=== PATIENT | female | born 1980 ===

== ENCOUNTER 2020-07-17 06:14 | Day surgery (SDC) | payer OTHER ==
[~2020-07-17 06:14] MED LIST: LACTATED RINGERS 1,000 ML IV SCH; METHYLERGONOVINE MALEATE 0.2 MG/ML VIAL IM ONE; MIDAZOLAM 2 MG/2 ML INJ IV NR; SCOPOLAMINE TRANSDERMAL PATCH 72 HR TD NR; SODIUM CHLORIDE 0.9% IRR 1,500 ML BOTTLE IR ONE
--- NOTE | 2020-07-17 06:35 | Short Stay Summary ---
Short Stay Documentation Date of service: 07/17/20 Narrative H&P: 39y/o @ 8 weeks ega with findings of an embryonic demise. Patient denies any precipitating event for her loss. This was an IVF . She denies any passage of tissue - History Principal diagnosis: Missed Past Medical History: No medical history Past Surgical History: No surgical history Social history: - Allergies and Medications Current Medications: Active Medications Lactated Ringer's (Lactated Ringers) 1,000 mls @ 100 mls/hr IV DIRECT MERCED Stop: 07/17/20 23:59 Midazolam HCl (Midazolam 2 Mg/2 Ml Inj) 2 mg IV PREOP NR Scopolamine (Scopolamine Transdermal Patch 72 Hr) 1 each TD PREOP NR - Physical exam General appearance: no acute distress Integumentary: no rash HEENT: Atraumatic Lungs: Clear to auscultation Breasts: deferred Heart: Regular rate Gastrointestinal: normal Female Genitourinary: deferred Rectal Exam: deferred - Brief post op/procedure progress note Date of procedure: 07/17/20 Pre-op diagnosis: Missed Post-op diagnosis: same Procedure: Suction dilatation and curettage Anesthesia: GETA Surgeon: IVANNA OWEN Estimated blood loss: other (100 mL) Pathology: list (Products of conception) Specimen disposition: to lab Condition: stable - Hospital course Hospital course: The patient was admitted the day of surgery and underwent a suction dilatation and curettage for missed . Please see operative note for details of surgery. Postoperative course was uneventful. - Disposition Condition at discharge: Good Disposition: DC-[id number] TO HOME OR SELFCARE Short Stay Discharge Plan Activity: other (Pelvic rest for 1 week) Diet: regular Additional Instructions: Schedule follow-up with Dr. Owen in 2 weeks Prescriptions: Ibuprofen [Motrin] 800 mg PO Q8HR PRN #30 tablet PRN Reason: Pain , Severe (7-10) HYDROcodone/APAP 5-325 [[place] 5/325] 1 each PO Q6HR PRN #15 tablet PRN Reason: Pain
[2020-07-17] MEDS ORDERED: SILVER NITRATE APPLICATOR 1 EA TP ONE ×2 (07:04→08:19)
[2020-07-17] MEDS ORDERED: METHYLERGONOVINE MALEATE 0.2 MG/ML VIAL IM ONE ×2 (07:04→08:12)
[2020-07-17] MEDS ORDERED: LIDOCAINE PF 100 MG/5 ML (CARDIAC SYRINGE) IV ONE (07:11)
[2020-07-17] MEDS ORDERED: propofoL 200 MG/20 ML VIAL IV ONE (07:11)
[2020-07-17] MEDS ORDERED: fentaNYL 100 MCG/2 ML INJ ONE (07:11)
--- NOTE | 2020-07-17 07:13 | Anesthesia Day of Surgery ---
Anesthesia Day of Surgery - Day of Surgery Patient Examined: Yes Patient H&P Reviewed: Yes Patient is NPO: Yes
--- NOTE | 2020-07-17 07:13 | Anesthesia Consultation ---
Anesthesia Consult and Med Hx Date of service: 07/17/20 - Airway Anesthetic Teeth Evaluation: Good ROM Head & Neck: Adequate Mental/Hyoid Distance: Adequate Mallampati Class: Class III Intubation Access Assessment: Possibly Difficult - Pre-Operative Health Status ASA Pre-Surgery Classification: ASA1 Proposed Anesthetic Plan: General - Pulmonary Hx Smoking: No Hx Respiratory Symptoms: No - Cardiovascular System Hx Hypertension: No - Central Nervous System CVA: No - Endocrine Hx Renal Disease: No Hx Liver Disease: No Hx Insulin Dependent Diabetes: No Hx Non-Insulin Dependent Diabetes: No Hx Thyroid Disease: No - Additional Comments Anesthesia Medical History Comments: No prior GA or FHx anesthetic complications.
[2020-07-17] MEDS ORDERED: miSOPROStol 200 MCG TAB ONE (07:31)
[2020-07-17] MEDS ORDERED: ONDANSETRON 4 MG/2 ML INJ IV PRN (08:00)
[2020-07-17] MEDS ORDERED: HYDROcodone/ACETAMINOPHEN 5-325 MG TAB PO PRN (08:00)
[2020-07-17] MEDS ORDERED: fentaNYL 100 MCG/2 ML INJ IV PRN (08:00)
[2020-07-17] MEDS ORDERED: dexAMETHasone 20 MG/5 ML VIAL ONE (08:03)
--- NOTE | 2020-07-17 08:26 | Operative Report ---
Operative Report Operative Report: Date of surgery: July 17, 2020 Preoperative diagnosis: Missed Postoperative diagnosis: Same as above Procedure: Suction dilatation and curettage Surgeon: Nicole Burt M.D. Anesthesia: Gen. endotracheal anesthesia Estimated blood loss: 100 mL Findings: Products of conception Indication: 39-year-old -0-1-0 with findings of a missed . The patient is elected to undergo surgical management. Procedure: The patient was taken to the operating room and given general en dotracheal anesthesia without complication. The patient is prepped and draped in a normal sterile fashion. A bivalve speculum was placed in the patient's vagina and a single-tooth tenaculums placed on the anterior lip of the cervix. The uterine cavity was then sounded. The cervical os was then dilated with graduated dilators. A number 9 [place] curved cannula cannula was placed to suction and found to be adequate. The cannula was then gently inserted into the dilated cervical os. Evacuation of the uterine contents were performed. Sharp curettage and endometrial surface was performed until cry was achieved. The cannula was then gently reinserted into the uterine cavity to evacuate any additional contents. After removal of the cannula there was no evidence of any active bleeding. The vaginal instruments were then removed atraumatically. The patient was then successfully extubated and taken to the recovery room in stable condition. All sponge laps and needle counts were correct x2. Pathology consisted of products of conception.
[2020-07-17 09:42] VITALS: BP 126/75
--- NOTE | 2020-07-17 09:56 | Post Anesthesia Evaluation ---
- Post Anesthesia Evaluation Patient Participated: Yes Airway Patent: Yes Stable Respiratory Function: Yes Nausea/Vomiting: No Temp > 96.8F: Yes Pain Manageable: Yes Adequeate Hydration: Yes Anesthesia Complications: No
== END 2020-07-17 09:55 | disposition home or self-care (01) ==
LOC: OR 06:14
PROVIDERS: ATTEND Obstetrics & Gynecology
DX: O02.1 Missed abortion (principal); Z79.899 Other long term (current) drug therapy
CPT/HCPCS: 59820; 86900; 86901; 88305; J1100; J2001; J2210; J2250; J2704; J3010; J7120